=== PATIENT | male | born 1980 | race Two or more races ===

== ENCOUNTER 2020-10-23 19:37 | Inpatient (IN) | payer OTHER ==
[2020-10-23] MEDS ORDERED: LACTATED RINGERS SOLUTION 1000 ML INFUS.BAG IV STA (20:04)
[2020-10-23] MEDS ORDERED: DEXAMETHASONE SOD PHOSPHATE 4 MG/1 ML VIAL IVPUSH ONE (20:05)
[2020-10-23] MEDS ORDERED: DEXAMETHASONE SOD PHOSPHATE 10 MG/1 ML VIAL ONE (20:19)
[2020-10-23] MEDS ORDERED: ACETAMINOPHEN 1000 MG/100 ML VIAL (NON FORMULARY) IVPB ONE (20:28)
[2020-10-23] MEDS ORDERED: ACETAMINOPHEN INJECTION 100 ML IVPB ONE (20:48)
[2020-10-23 21:13] LABS: VENOUS BASE EXCESS 1.4 mmol/L (-2-2); VENOUS O2 SATURATION 24.3 % (70-80); VENOUS PCO2 51.5 mmHg (38-52); VENOUS PH 7.354 (7.310-7.410)
[2020-10-23 21:17] LABS: BASO % 0.1 % (0-2.0); HEMATOCRIT 47.1 % (35.4-49); HEMOGLOBIN 15.5 GM/dL (11.7-16.9); MCH 26.9 pg (25.7-33.7); MCHC 32.9 g/dl (32.0-35.9); MEAN CELL VOLUME 81.9 fl (80-96); MEAN PLT VOLUME 9.9 fl (7.5-11.1); MONO % 2.5 % (3.8-10.2); NEUT % 84.4 % (42.8-82.8); PLATELET COUNT 170 K/MM3 (134-434); RBC 5.75 M/mm3 (4.00-5.60); WHITE BLOOD COUNT 6.3 K/mm3 (4.0-10.0)
[2020-10-23 21:35] LABS: CHLORIDE 100 mmol/L (98-107); SODIUM 133 mmol/L (136-145)
[2020-10-23 21:38] LABS: CALCIUM 8.4 mg/dL (8.5-10.1)
[2020-10-23 21:40] LABS: ALBUMIN 3.3 g/dl (3.4-5.0); ANION GAP 5 MMOL/L (8-16); BLOOD UREA NITROGEN 9.4 mg/dL (7-18); CO2 28 mmol/L (21-32); GLUCOSE,RANDOM 104 mg/dL (74-106)
[2020-10-23 21:41] LABS: BILIRUBIN,DIRECT 0.1 mg/dL (0.0-0.2)
[2020-10-23 21:43] LABS: BILIRUBIN,TOTAL 0.2 mg/dL (0.2-1); SGOT/AST 39 U/L (15-37); SGPT/ALT 28 U/L (13-61); TOT PROT 7.1 g/dl (6.4-8.2)
[2020-10-23 21:44] LABS: ALK PHOS 53 U/L (45-117)
[2020-10-23 21:52] LABS: LDH 402 U/L (87-246)
[2020-10-23 22:05] LABS: INR 1.3 (0.83-1.09); PROTHROMBIN TIME (PATIENT) 15.9 SEC (9.7-13.0)
[2020-10-23 22:08] LABS: ACTIVATED PTT 31.7 SECONDS (25.2-36.5)
[2020-10-23 23:17] LABS: PH,URINE 6.5 (5.0-8.0); URINE APPEARANCE CLEAR; URINE BILIRUBIN NEGATIVE (NEGATIVE); URINE COLOR YELLOW; URINE GLUCOSE (UA) NEGATIVE (NEGATIVE); URINE KETONE NEGATIVE (NEGATIVE); URINE LEUK ESTERASE NEGATIVE (NEGATIVE); URINE NITRITE NEGATIVE (NEGATIVE); URINE PROTEIN TRACE (NEGATIVE); URINE UROBILINOGEN 0.2 mg/dL (0.2-1.0)
[2020-10-24 03:35] VITALS: BMI 26.9
[2020-10-24] MEDS: SODIUM CHLORIDE 1,000 ML IV SCH ×3 (04:00→23:45)
[2020-10-24 07:27] LABS: HEMATOCRIT 44.7 % (35.4-49); HEMOGLOBIN 14.9 GM/dL (11.7-16.9); MCH 27.3 pg (25.7-33.7); MCHC 33.3 g/dl (32.0-35.9); MEAN CELL VOLUME 82.1 fl (80-96); MEAN PLT VOLUME 9.7 fl (7.5-11.1); PLATELET COUNT 154 K/MM3 (134-434); RBC 5.44 M/mm3 (4.00-5.60); RDW 14.3 % (11.9-15.9); WHITE BLOOD COUNT 3.8 K/mm3 (4.0-10.0)
[2020-10-24 07:49] LABS: BLOOD UREA NITROGEN 10.4 mg/dL (7-18)
[2020-10-24 07:50] LABS: CALCIUM 8.2 mg/dL (8.5-10.1)
[2020-10-24 07:51] LABS: CREATININE 0.8 mg/dL (0.55-1.3)
[2020-10-24] MEDS: ZINC SULFATE 220 MG CAPSULE (FP) PO SCH ×2 (11:17→21:00)
[2020-10-24] MEDS: ASCORBIC ACID 500 MG TABLET (FP) PO SCH (11:18)
[2020-10-24] MEDS: amLODIPine BESYLATE 5 MG TABLET (FP) PO SCH (11:18)
[2020-10-24] MEDS: DEXAMETHASONE SOD PHOSPHATE 4 MG/1 ML VIAL IVPUSH SCH (11:18)
[2020-10-24] MEDS: ENOXAPARIN NA (PORCINE) 40 MG/0.4 ML DISP.SYRIN SQ SCH (11:19)
[2020-10-24] MEDS: ACETAMINOPHEN 1000 MG/100 ML VIAL (NON FORMULARY) IVPB PRN (12:06)
[2020-10-24] MEDS: FAMOTIDINE 20 MG TABLET PO SCH (17:36)
[2020-10-24] MEDS ORDERED: REMDESIVIR 200 MG in SODIUM CHLORIDE 250 ML IVPB ONE (21:00)
[2020-10-25] MEDS: ACETAMINOPHEN 1000 MG/100 ML VIAL (NON FORMULARY) IVPB PRN (05:38)
[2020-10-25] MEDS: ZINC SULFATE 220 MG CAPSULE (FP) PO SCH ×2 (11:18→20:59)
[2020-10-25] MEDS: ASCORBIC ACID 500 MG TABLET (FP) PO SCH (11:18)
[2020-10-25] MEDS: FAMOTIDINE 20 MG TABLET PO SCH (11:18)
[2020-10-25] MEDS: ENOXAPARIN NA (PORCINE) 40 MG/0.4 ML DISP.SYRIN SQ SCH (11:18)
[2020-10-25] MEDS: amLODIPine BESYLATE 5 MG TABLET (FP) PO SCH (11:19)
[2020-10-25] MEDS: DEXAMETHASONE SOD PHOSPHATE 4 MG/1 ML VIAL IVPUSH SCH (11:19)
[2020-10-25] MEDS: REMDESIVIR 100 MG in SODIUM CHLORIDE 250 ML IVPB SCH (20:46)
[2020-10-25] MEDS: SODIUM CHLORIDE 1,000 ML IV SCH ×2 (20:50→23:50)
[2020-10-26] MEDS: DEXAMETHASONE SOD PHOSPHATE 4 MG/1 ML VIAL IVPUSH SCH (09:29)
[2020-10-26] MEDS: FAMOTIDINE 20 MG TABLET PO SCH (09:30)
[2020-10-26] MEDS: amLODIPine BESYLATE 5 MG TABLET (FP) PO SCH (09:30)
[2020-10-26] MEDS: ZINC SULFATE 220 MG CAPSULE (FP) PO SCH ×2 (09:30→21:41)
[2020-10-26] MEDS: ASCORBIC ACID 500 MG TABLET (FP) PO SCH (09:30)
[2020-10-26] MEDS: ENOXAPARIN NA (PORCINE) 40 MG/0.4 ML DISP.SYRIN SQ SCH (09:30)
[2020-10-26] MEDS: ALBUTEROL SO4 HFA INHALER IH SCH ×3 (11:51→20:34)
[2020-10-26] MEDS: BUDESONIDE/FORMETEROL FUMARATE 160/4.5 mcg INHALER IH SCH ×2 (11:59→21:41)
[2020-10-26] MEDS: REMDESIVIR 100 MG in SODIUM CHLORIDE 250 ML IVPB SCH (20:34)
[2020-10-27 08:05] LABS: BASO % 0.1 % (0-2.0); HEMATOCRIT 47.5 % (35.4-49); HEMOGLOBIN 16.1 GM/dL (11.7-16.9); LYMPH % 11.2 % (8-40); MCH 27.3 pg (25.7-33.7); MCHC 33.9 g/dl (32.0-35.9); MEAN CELL VOLUME 80.7 fl (80-96); MONO % 9.4 % (3.8-10.2); NEUT % 79.3 % (42.8-82.8); PLATELET COUNT 243 K/MM3 (134-434); RBC 5.89 M/mm3 (4.00-5.60); WHITE BLOOD COUNT 9.9 K/mm3 (4.0-10.0)
[2020-10-27 08:29] LABS: CALCIUM 8.2 mg/dL (8.5-10.1)
[2020-10-27 08:30] LABS: ALBUMIN 2.9 g/dl (3.4-5.0); BLOOD UREA NITROGEN 14.9 mg/dL (7-18); MAGNESIUM 2.3 mg/dL (1.8-2.4)
[2020-10-27 08:33] LABS: CREATININE 0.7 mg/dL (0.55-1.3)
[2020-10-27 08:34] LABS: BILIRUBIN,TOTAL 0.4 mg/dL (0.2-1); PHOSPHOROUS 3.5 mg/dL (2.5-4.9)
[2020-10-27 08:35] LABS: TOT PROT 6.8 g/dl (6.4-8.2)
[2020-10-27] MEDS: ZINC SULFATE 220 MG CAPSULE (FP) PO SCH ×2 (09:40→21:10)
[2020-10-27] MEDS: ASCORBIC ACID 500 MG TABLET (FP) PO SCH (09:41)
[2020-10-27] MEDS: ENOXAPARIN NA (PORCINE) 40 MG/0.4 ML DISP.SYRIN SQ SCH (09:41)
[2020-10-27] MEDS: DEXAMETHASONE SOD PHOSPHATE 4 MG/1 ML VIAL IVPUSH SCH (09:41)
[2020-10-27] MEDS: FAMOTIDINE 20 MG TABLET PO SCH (09:41)
[2020-10-27] MEDS: amLODIPine BESYLATE 5 MG TABLET (FP) PO SCH (09:41)
[2020-10-27] MEDS: ALBUTEROL SO4 HFA INHALER IH SCH ×4 (09:42→20:20)
[2020-10-27] MEDS: BUDESONIDE/FORMETEROL FUMARATE 160/4.5 mcg INHALER IH SCH ×2 (09:42→21:10)
[2020-10-27] MEDS ORDERED: ACETAMINOPHEN 500 MG TABLET (FP) PO PRN (19:52)
[2020-10-27] MEDS: REMDESIVIR 100 MG in SODIUM CHLORIDE 250 ML IVPB SCH (20:19)
[2020-10-28] MEDS: ALBUTEROL SO4 HFA INHALER IH SCH ×4 (07:31→20:56)
[2020-10-28] MEDS: ENOXAPARIN NA (PORCINE) 40 MG/0.4 ML DISP.SYRIN SQ SCH (09:20)
[2020-10-28] MEDS: amLODIPine BESYLATE 5 MG TABLET (FP) PO SCH (09:20)
[2020-10-28] MEDS: DEXAMETHASONE SOD PHOSPHATE 4 MG/1 ML VIAL IVPUSH SCH (09:20)
[2020-10-28] MEDS: ZINC SULFATE 220 MG CAPSULE (FP) PO SCH ×2 (09:20→21:00)
[2020-10-28] MEDS: ASCORBIC ACID 500 MG TABLET (FP) PO SCH (09:20)
[2020-10-28] MEDS: FAMOTIDINE 20 MG TABLET PO SCH (09:20)
[2020-10-28] MEDS: BUDESONIDE/FORMETEROL FUMARATE 160/4.5 mcg INHALER IH SCH ×2 (09:22→21:00)
[2020-10-28] MEDS ORDERED: PT OWN MED DRAWER 7, Y5N ONE (20:45)
[2020-10-28] MEDS: REMDESIVIR 100 MG in SODIUM CHLORIDE 250 ML IVPB SCH (20:56)
[2020-10-29 07:29] LABS: HEMOGLOBIN 15.9 GM/dL (11.7-16.9); MCH 27.4 pg (25.7-33.7); MCHC 33.9 g/dl (32.0-35.9); MEAN PLT VOLUME 9.3 fl (7.5-11.1); PLATELET COUNT 387 K/MM3 (134-434); RBC 5.81 M/mm3 (4.00-5.60); RDW 13.9 % (11.9-15.9); WHITE BLOOD COUNT 14.4 K/mm3 (4.0-10.0)
[2020-10-29 07:53] LABS: CALCIUM 8.5 mg/dL (8.5-10.1)
[2020-10-29 07:54] LABS: ALBUMIN 3.2 g/dl (3.4-5.0); BLOOD UREA NITROGEN 15.5 mg/dL (7-18)
[2020-10-29 07:57] LABS: BILIRUBIN,TOTAL 0.7 mg/dL (0.2-1); CREATININE 0.7 mg/dL (0.55-1.3)
[2020-10-29] MEDS: ZINC SULFATE 220 MG CAPSULE (FP) PO SCH ×2 (11:19→21:21)
[2020-10-29] MEDS: ALBUTEROL SO4 HFA INHALER IH SCH ×4 (11:20→21:21)
[2020-10-29] MEDS: FAMOTIDINE 20 MG TABLET PO SCH (11:20)
[2020-10-29] MEDS: ENOXAPARIN NA (PORCINE) 40 MG/0.4 ML DISP.SYRIN SQ SCH (11:20)
[2020-10-29] MEDS: BUDESONIDE/FORMETEROL FUMARATE 160/4.5 mcg INHALER IH SCH ×2 (11:20→21:21)
[2020-10-29] MEDS: DEXAMETHASONE SOD PHOSPHATE 4 MG/1 ML VIAL IVPUSH SCH (11:20)
[2020-10-29] MEDS: amLODIPine BESYLATE 5 MG TABLET (FP) PO SCH ×2 (11:20→13:17)
[2020-10-29] MEDS: ASCORBIC ACID 500 MG TABLET (FP) PO SCH (11:20)
[2020-10-29] MEDS: clonazePAM 0.5 MG TABLET PO PRN (15:10)
[2020-10-30] MEDS ORDERED: TOCILIZUMAB (ACTEMRA) 200 MG/10 ML VIAL IVPB ONE (10:15)
[2020-10-30] MEDS: FAMOTIDINE 20 MG TABLET PO SCH (10:20)
[2020-10-30] MEDS: amLODIPine BESYLATE 5 MG TABLET (FP) PO SCH (10:20)
[2020-10-30] MEDS: DEXAMETHASONE SOD PHOSPHATE 4 MG/1 ML VIAL IVPUSH SCH (10:20)
[2020-10-30] MEDS: ENOXAPARIN NA (PORCINE) 40 MG/0.4 ML DISP.SYRIN SQ SCH (10:20)
[2020-10-30] MEDS: ZINC SULFATE 220 MG CAPSULE (FP) PO SCH ×2 (10:20→21:17)
[2020-10-30] MEDS: ASCORBIC ACID 500 MG TABLET (FP) PO SCH (10:21)
[2020-10-30] MEDS: BUDESONIDE/FORMETEROL FUMARATE 160/4.5 mcg INHALER IH SCH ×2 (10:30→21:17)
[2020-10-30] MEDS: ALBUTEROL SO4 HFA INHALER IH SCH ×5 (10:30→20:37)
[2020-10-30] MEDS ORDERED: TOCILIZUMAB 400 MG, TOCILIZUMAB 100 MG in SODIUM CHLORIDE 75 ML IVPB ONE (11:30)
[2020-10-30] MEDS: CHLORHEXIDINE GLUCONATE 4% CLEANSER FOR DECOLONIZATION TP SCH (21:17)
[2020-10-30] MEDS: MUPIROCIN 2% TOPICAL OINTMENT FOR DECOLONIZATION NS SCH (21:17)
[2020-10-30] MEDS ORDERED: ACETAMINOPHEN 500 MG TABLET (FP) PO PRN (23:41)
[2020-10-30] MEDS: clonazePAM 0.5 MG TABLET PO PRN (23:58)
[2020-10-31 06:11] LABS: ARTERIAL BLD GAS O2 SATURATION 92.9 mmHg (95-98); ARTERIAL BLOOD GAS BASE EXCESS -0.1 mmol/L (-2-2); ARTERIAL BLOOD GAS PO2 61.9 mmHg (80-100); ARTERIAL BLOOD GAS pH 7.448 (7.350-7.450)
[2020-10-31 06:16] LABS: ALLENS TEST POSITIVE
[2020-10-31 07:05] LABS: BASO % 0.1 % (0-2.0); EOS % 0.4 % (0-4.5); HEMOGLOBIN 16.4 GM/dL (11.7-16.9); LYMPH % 5.5 % (8-40); MCH 27.2 pg (25.7-33.7); MCHC 33.5 g/dl (32.0-35.9); MEAN CELL VOLUME 81.3 fl (80-96); MONO % 4.4 % (3.8-10.2); NEUT % 89.6 % (42.8-82.8); PLATELET COUNT 505 K/MM3 (134-434); RBC 6.03 M/mm3 (4.00-5.60); RDW 14.7 % (11.9-15.9); WHITE BLOOD COUNT 20.2 K/mm3 (4.0-10.0)
[2020-10-31 07:17] LABS: MAGNESIUM 2.3 mg/dL (1.8-2.4)
[2020-10-31 07:21] LABS: PHOSPHOROUS 3.8 mg/dL (2.5-4.9)
[2020-10-31] MEDS: ALBUTEROL SO4 HFA INHALER IH SCH ×3 (08:30→16:47)
[2020-10-31 08:44] LABS: ANISOCYTOSIS 2+; MACROCYTOSIS 0; PLATELET ESTIMATE INCREASED
[2020-10-31] MEDS ORDERED: PT OWN MED DRAWER 7, Y5N ONE ×2 (09:50→10:37)
[2020-10-31] MEDS: MUPIROCIN 2% TOPICAL OINTMENT FOR DECOLONIZATION NS SCH ×3 (09:51→22:52)
[2020-10-31] MEDS: ENOXAPARIN NA (PORCINE) 40 MG/0.4 ML DISP.SYRIN SQ SCH (09:52)
[2020-10-31] MEDS: BUDESONIDE/FORMETEROL FUMARATE 160/4.5 mcg INHALER IH SCH ×3 (09:52→22:53)
[2020-10-31] MEDS: DEXAMETHASONE SOD PHOSPHATE 4 MG/1 ML VIAL IVPUSH SCH (09:52)
[2020-10-31] MEDS: ASCORBIC ACID 500 MG TABLET (FP) PO SCH (09:52)
[2020-10-31] MEDS: ZINC SULFATE 220 MG CAPSULE (FP) PO SCH ×2 (09:52→22:52)
[2020-10-31] MEDS: FAMOTIDINE 20 MG TABLET PO SCH (09:52)
[2020-10-31] MEDS: amLODIPine BESYLATE 5 MG TABLET (FP) PO SCH (09:52)
[2020-10-31] MEDS ORDERED: TOCILIZUMAB IVPB ONE (11:30)
[2020-10-31] MEDS ORDERED: SODIUM CHLORIDE IVPB ONE (11:30)
[2020-10-31] MEDS: CHLORHEXIDINE GLUCONATE 4% CLEANSER FOR DECOLONIZATION TP SCH (22:52)
[2020-11-01 07:04] LABS: BASO % 0.2 % (0-2.0); EOS % 1.7 % (0-4.5); HEMATOCRIT 49.6 % (35.4-49); HEMOGLOBIN 16.9 GM/dL (11.7-16.9); LYMPH % 4.7 % (8-40); MCH 27.6 pg (25.7-33.7); MCHC 34.2 g/dl (32.0-35.9); MEAN CELL VOLUME 80.8 fl (80-96); MEAN PLT VOLUME 8.7 fl (7.5-11.1); NEUT % 89.4 % (42.8-82.8); PLATELET COUNT 524 K/MM3 (134-434); RBC 6.14 M/mm3 (4.00-5.60); RDW 14.6 % (11.9-15.9); WHITE BLOOD COUNT 20.3 K/mm3 (4.0-10.0)
[2020-11-01 07:17] LABS: ALBUMIN 3.3 g/dl (3.4-5.0); CALCIUM 8.8 mg/dL (8.5-10.1)
[2020-11-01 07:18] LABS: BLOOD UREA NITROGEN 16.8 mg/dL (7-18); MAGNESIUM 2.2 mg/dL (1.8-2.4)
[2020-11-01 07:20] LABS: CREATININE 0.7 mg/dL (0.55-1.3)
[2020-11-01 07:21] LABS: PHOSPHOROUS 3.5 mg/dL (2.5-4.9)
[2020-11-01 07:22] LABS: BILIRUBIN,TOTAL 0.7 mg/dL (0.2-1); TOT PROT 7.2 g/dl (6.4-8.2)
[2020-11-01] MEDS ORDERED: PT OWN MED DRAWER 7, Y5N ONE ×2 (07:47→09:34)
[2020-11-01] MEDS: ALBUTEROL SO4 HFA INHALER IH SCH ×4 (08:03→21:29)
[2020-11-01] MEDS: ENOXAPARIN NA (PORCINE) 40 MG/0.4 ML DISP.SYRIN SQ SCH (09:39)
[2020-11-01] MEDS: amLODIPine BESYLATE 5 MG TABLET (FP) PO SCH (09:39)
[2020-11-01] MEDS: FAMOTIDINE 20 MG TABLET PO SCH (09:39)
[2020-11-01] MEDS: ASCORBIC ACID 500 MG TABLET (FP) PO SCH (09:39)
[2020-11-01] MEDS: ZINC SULFATE 220 MG CAPSULE (FP) PO SCH ×2 (09:39→21:20)
[2020-11-01] MEDS: DEXAMETHASONE SOD PHOSPHATE 4 MG/1 ML VIAL IVPUSH SCH (09:39)
[2020-11-01] MEDS: BUDESONIDE/FORMETEROL FUMARATE 160/4.5 mcg INHALER IH SCH ×2 (09:40→21:28)
[2020-11-01] MEDS: MUPIROCIN 2% TOPICAL OINTMENT FOR DECOLONIZATION NS SCH ×2 (10:36→21:10)
[2020-11-01 11:16] LABS: PLATELET ESTIMATE NORMAL
[2020-11-01] MEDS ORDERED: MIDAZOLAM HCL 5 MG/1 ML Single Dose Vial IVPUSH ONE (12:32)
[2020-11-01] MEDS ORDERED: MORPHINE SULFATE 2 MG/ML VIAL IVPUSH ONE (13:51)
[2020-11-01] MEDS: LIDOCAINE 5% TOPICAL PATCH TP SCH (14:01)
[2020-11-01] MEDS ORDERED: PIPERACILLIN/TAZOBACTAM 3.375 GM VIAL IVPB ONE (18:16)
[2020-11-01] MEDS ORDERED: DEXTROSE 5%-WATER - 50 ML IVPB ONE (18:16)
[2020-11-01] MEDS: PIPERACILLIN/TAZOB 3.375 GM 3.375 GM in DEXTROSE 5%-WATER - 50 ML IVPB SCH (18:38)
[2020-11-01] MEDS ORDERED: morphine SULFATE 4 MG/ML VIAL IVPUSH ONE (20:02)
[2020-11-01] MEDS: CHLORHEXIDINE GLUCONATE 4% CLEANSER FOR DECOLONIZATION TP SCH (21:09)
[2020-11-01] MEDS: LIDOCAINE PATCH REMOVAL MC SCH (21:28)
[2020-11-01] MEDS: DEXMEDETOMIDINE IN 0.9 % NACL 400 MCG/100 ML VIAL IVPB SCH (22:24)
[2020-11-01 22:48] LABS: ARTERIAL BLOOD GAS BASE EXCESS 0.3 mmol/L (-2-2); ARTERIAL BLOOD GAS PO2 48.6 mmHg (80-100); ARTERIAL BLOOD GAS pH 7.441 (7.350-7.450)
[2020-11-01 22:49] LABS: ALLENS TEST POSITIVE
[2020-11-02] MEDS: PIPERACILLIN/TAZOB 3.375 GM 3.375 GM in DEXTROSE 5%-WATER - 50 ML IVPB SCH ×3 (03:15→18:19)
[2020-11-02] MEDS ORDERED: PIPERACILLIN/TAZOBACTAM 3.375 GM VIAL IVPB ONE ×3 (03:24→18:01)
[2020-11-02] MEDS ORDERED: DEXTROSE 5%-WATER - 50 ML IVPB ONE ×3 (03:25→18:02)
[2020-11-02 06:02] LABS: ALLENS TEST POSITIVE; ARTERIAL BLD GAS O2 SATURATION 74.4 mmHg (95-98); ARTERIAL BLOOD GAS BASE EXCESS 0.8 mmol/L (-2-2); ARTERIAL BLOOD GAS pH 7.454 (7.350-7.450)
[2020-11-02 06:07] LABS: ARTERIAL BLOOD GAS PO2 37.3 mmHg (80-100)
[2020-11-02] MEDS ORDERED: RAPID SEQUENCE INTUBATION KIT NR ONE (06:11)
[2020-11-02] MEDS ORDERED: PROPOFOL 1,000,000 MCG/100 ML VIAL ONE (06:45)
[2020-11-02] MEDS: PROPOFOL 1,000,000 MCG/100 ML VIAL IVPB SCH ×2 (07:00→10:46)
[2020-11-02] MEDS: FENTANYL NS IVPB 500 MCG/100 ML BAG IVPB SCH ×2 (07:00→09:34)
[2020-11-02] MEDS ORDERED: MIDAZOLAM IN 0.9 % SOD.CHLORID 1 MG/1 ML PLAST..BAG ONE ×3 (07:04→20:03)
[2020-11-02] MEDS: MIDAZOLAM 100 MG in SODIUM CHLORIDE 100 ML IVPB SCH (07:20)
[2020-11-02] MEDS: VECURONIUM BROMIDE 100 MG/100 ML BAG IVPB SCH (07:45)
[2020-11-02] MEDS: ALBUTEROL SO4 HFA INHALER IH SCH ×4 (08:19→21:07)
[2020-11-02] MEDS: DEXAMETHASONE SOD PHOSPHATE 4 MG/1 ML VIAL IVPUSH SCH (09:32)
[2020-11-02] MEDS: MUPIROCIN 2% TOPICAL OINTMENT FOR DECOLONIZATION NS SCH ×2 (09:32→21:08)
[2020-11-02] MEDS: ENOXAPARIN NA (PORCINE) 40 MG/0.4 ML DISP.SYRIN SQ SCH (09:32)
[2020-11-02] MEDS: ZINC SULFATE 220 MG CAPSULE (FP) PO SCH ×2 (09:33→21:08)
[2020-11-02] MEDS: amLODIPine BESYLATE 5 MG TABLET (FP) PO SCH (09:33)
[2020-11-02] MEDS: FAMOTIDINE 20 MG TABLET PO SCH (09:33)
[2020-11-02] MEDS: LIDOCAINE 5% TOPICAL PATCH TP SCH (09:33)
[2020-11-02] MEDS: BUDESONIDE/FORMETEROL FUMARATE 160/4.5 mcg INHALER IH SCH ×2 (09:33→21:08)
[2020-11-02] MEDS: ASCORBIC ACID 500 MG TABLET (FP) PO SCH (09:33)
[2020-11-02 10:42] LABS: ARTERIAL BLD GAS O2 SATURATION 77.6 mmHg (95-98); ARTERIAL BLOOD GAS BASE EXCESS -6.8 mmol/L (-2-2); ARTERIAL BLOOD GAS PO2 60.5 mmHg (80-100)
[2020-11-02 10:44] LABS: HEMATOCRIT 53.6 % (35.4-49); HEMOGLOBIN 17.4 GM/dL (11.7-16.9); MCH 27.2 pg (25.7-33.7); MCHC 32.4 g/dl (32.0-35.9); MEAN PLT VOLUME 8.5 fl (7.5-11.1); PLATELET COUNT 535 K/MM3 (134-434); RBC 6.38 M/mm3 (4.00-5.60); RDW 14.7 % (11.9-15.9); WHITE BLOOD COUNT 29.3 K/mm3 (4.0-10.0)
[2020-11-02 10:49] LABS: ALLENS TEST POSITIVE
[2020-11-02 10:50] LABS: VENT MODE AC; VENT RATE 16
[2020-11-02 10:54] LABS: ARTERIAL BLOOD GAS pH 7.051 (7.350-7.450)
[2020-11-02 11:12] LABS: ALBUMIN 3.5 g/dl (3.4-5.0); BLOOD UREA NITROGEN 23.9 mg/dL (7-18); CALCIUM 8.6 mg/dL (8.5-10.1); MAGNESIUM 2.5 mg/dL (1.8-2.4)
[2020-11-02 11:16] LABS: CREATININE 0.8 mg/dL (0.55-1.3); PHOSPHOROUS 6.5 mg/dL (2.5-4.9); TOT PROT 7.4 g/dl (6.4-8.2)
[2020-11-02 11:22] LABS: BILIRUBIN,TOTAL 0.5 mg/dL (0.2-1)
[2020-11-02 12:34] LABS: ARTERIAL BLD GAS O2 SATURATION 82.1 mmHg (95-98); ARTERIAL BLOOD GAS BASE EXCESS -4.1 mmol/L (-2-2); ARTERIAL BLOOD GAS PO2 60.7 mmHg (80-100)
[2020-11-02 12:35] LABS: ALLENS TEST POSITIVE
[2020-11-02 12:39] LABS: VENT MODE V
[2020-11-02 12:40] LABS: VENT RATE 30
[2020-11-02] MEDS: PANTOPRAZOLE SODIUM 40 MG VIAL IVPUSH SCH (13:19)
[2020-11-02] MEDS ORDERED: FENTANYL IVPB 500 MCG/100 ML BAG IVPB ONE ×2 (14:35→20:03)
[2020-11-02 17:11] LABS: HEP B CORE AB, TOT Negative (Negative)
[2020-11-02] MEDS ORDERED: ACETAMINOPHEN 1000 MG/100 ML VIAL (NON FORMULARY) IVPB ONE (19:15)
[2020-11-02] MEDS: LIDOCAINE PATCH REMOVAL MC SCH (21:08)
[2020-11-02] MEDS: CHLORHEXIDINE GLUCONATE 4% CLEANSER FOR DECOLONIZATION TP SCH (21:08)
[2020-11-02] MEDS: DEXMEDETOMIDINE IN 0.9 % NACL 400 MCG/100 ML VIAL IVPB SCH (21:30)
[2020-11-03] MEDS ORDERED: MIDAZOLAM IN 0.9 % SOD.CHLORID 1 MG/1 ML PLAST..BAG ONE ×3 (00:45→19:39)
[2020-11-03] MEDS ORDERED: PIPERACILLIN/TAZOBACTAM 3.375 GM VIAL IVPB ONE ×3 (01:24→18:04)
[2020-11-03] MEDS ORDERED: DEXTROSE 5%-WATER - 50 ML IVPB ONE ×3 (01:24→18:04)
[2020-11-03] MEDS: PIPERACILLIN/TAZOB 3.375 GM 3.375 GM in DEXTROSE 5%-WATER - 50 ML IVPB SCH ×4 (01:27→18:34)
[2020-11-03] MEDS: PROPOFOL 1,000,000 MCG/100 ML VIAL IVPB SCH ×3 (01:29→19:30)
[2020-11-03] MEDS: FENTANYL NS IVPB 500 MCG/100 ML BAG IVPB SCH ×4 (06:14→22:00)
[2020-11-03] MEDS: MIDAZOLAM 100 MG in SODIUM CHLORIDE 100 ML IVPB SCH ×2 (06:14→17:56)
[2020-11-03] MEDS ORDERED: FENTANYL IVPB 500 MCG/100 ML BAG IVPB ONE (06:16)
[2020-11-03 06:46] LABS: ARTERIAL BLD GAS O2 SATURATION 94.5 mmHg (95-98); ARTERIAL BLOOD GAS BASE EXCESS 2.1 mmol/L (-2-2); ARTERIAL BLOOD GAS PO2 80.4 mmHg (80-100); ARTERIAL BLOOD GAS pH 7.303 (7.350-7.450)
[2020-11-03 06:55] LABS: ALLENS TEST POSITIVE; VENT MODE V-A/C; VENT RATE 30
[2020-11-03] MEDS: ALBUTEROL SO4 HFA INHALER IH SCH ×4 (08:55→18:34)
[2020-11-03] MEDS: VECURONIUM BROMIDE 100 MG/100 ML BAG IVPB SCH ×2 (08:56→17:00)
[2020-11-03] MEDS: BUDESONIDE/FORMETEROL FUMARATE 160/4.5 mcg INHALER IH SCH ×2 (09:50→21:20)
[2020-11-03] MEDS: LIDOCAINE 5% TOPICAL PATCH TP SCH (09:50)
[2020-11-03] MEDS: DEXAMETHASONE SOD PHOSPHATE 4 MG/1 ML VIAL IVPUSH SCH (09:53)
[2020-11-03] MEDS: ASCORBIC ACID 500 MG TABLET (FP) PO SCH (09:53)
[2020-11-03] MEDS: ENOXAPARIN NA (PORCINE) 40 MG/0.4 ML DISP.SYRIN SQ SCH (09:53)
[2020-11-03] MEDS: MUPIROCIN 2% TOPICAL OINTMENT FOR DECOLONIZATION NS SCH ×2 (09:53→21:19)
[2020-11-03] MEDS: PANTOPRAZOLE SODIUM 40 MG VIAL IVPUSH SCH (09:53)
[2020-11-03] MEDS: ZINC SULFATE 220 MG CAPSULE (FP) PO SCH ×2 (09:54→21:19)
[2020-11-03 09:58] LABS: BASO % 0.2 % (0-2.0); HEMATOCRIT 51.4 % (35.4-49); HEMOGLOBIN 16.1 GM/dL (11.7-16.9); LYMPH % 4.4 % (8-40); MCHC 31.4 g/dl (32.0-35.9); MEAN CELL VOLUME 82.7 fl (80-96); NEUT % 88.4 % (42.8-82.8); PLATELET COUNT 292 K/MM3 (134-434); RBC 6.21 M/mm3 (4.00-5.60); RDW 14.4 % (11.9-15.9)
[2020-11-03 10:24] LABS: ALBUMIN 2.8 g/dl (3.4-5.0); CALCIUM 8.1 mg/dL (8.5-10.1)
[2020-11-03 10:25] LABS: BLOOD UREA NITROGEN 17.7 mg/dL (7-18); MAGNESIUM 2.3 mg/dL (1.8-2.4)
[2020-11-03 10:27] LABS: CREATININE 0.9 mg/dL (0.55-1.3)
[2020-11-03 10:28] LABS: PHOSPHOROUS 4.1 mg/dL (2.5-4.9)
[2020-11-03 10:29] LABS: BILIRUBIN,TOTAL 0.4 mg/dL (0.2-1); TOT PROT 6.2 g/dl (6.4-8.2)
[2020-11-03] MEDS: amLODIPine BESYLATE 5 MG TABLET (FP) PO SCH (11:37)
[2020-11-03 18:17] LABS: ARTERIAL BLD GAS O2 SATURATION 89.4 mmHg (95-98); ARTERIAL BLOOD GAS BASE EXCESS 2.7 mmol/L (-2-2); ARTERIAL BLOOD GAS pH 7.307 (7.350-7.450)
[2020-11-03 18:19] LABS: ALLENS TEST POSITIVE
[2020-11-03 18:20] LABS: VENT MODE A/C; VENT RATE 30
[2020-11-03] MEDS: LIDOCAINE PATCH REMOVAL MC SCH (21:19)
[2020-11-03] MEDS: CHLORHEXIDINE GLUCONATE 4% CLEANSER FOR DECOLONIZATION TP SCH (21:19)
[2020-11-03] MEDS: DEXMEDETOMIDINE IN 0.9 % NACL 400 MCG/100 ML VIAL IVPB SCH (21:20)
[2020-11-04] MEDS ORDERED: PIPERACILLIN/TAZOBACTAM 3.375 GM VIAL IVPB ONE ×2 (01:36→08:58)
[2020-11-04] MEDS ORDERED: DEXTROSE 5%-WATER - 50 ML IVPB ONE ×2 (01:37→08:58)
[2020-11-04] MEDS: PIPERACILLIN/TAZOB 3.375 GM 3.375 GM in DEXTROSE 5%-WATER - 50 ML IVPB SCH ×2 (01:40→09:05)
[2020-11-04 02:28] LABS: ALLENS TEST POSITIVE; ARTERIAL BLD GAS O2 SATURATION 89.1 mmHg (95-98); ARTERIAL BLOOD GAS BASE EXCESS 7.4 mmol/L (-2-2); ARTERIAL BLOOD GAS PO2 60.7 mmHg (80-100); ARTERIAL BLOOD GAS pH 7.343 (7.350-7.450); VENT MODE A/C; VENT RATE 30
[2020-11-04 06:28] LABS: BASO % 0.1 % (0-2.0); HEMATOCRIT 44.1 % (35.4-49); HEMOGLOBIN 14.6 GM/dL (11.7-16.9); LYMPH % 4.7 % (8-40); MCH 27.3 pg (25.7-33.7); MCHC 33.1 g/dl (32.0-35.9); MEAN CELL VOLUME 82.7 fl (80-96); MEAN PLT VOLUME 8.4 fl (7.5-11.1); MONO % 5.1 % (3.8-10.2); NEUT % 89.1 % (42.8-82.8); PLATELET COUNT 327 K/MM3 (134-434); RBC 5.33 M/mm3 (4.00-5.60); RDW 14.1 % (11.9-15.9); WHITE BLOOD COUNT 15.8 K/mm3 (4.0-10.0)
[2020-11-04 06:51] LABS: ALBUMIN 2.5 g/dl (3.4-5.0); CALCIUM 7.5 mg/dL (8.5-10.1); MAGNESIUM 2.3 mg/dL (1.8-2.4)
[2020-11-04 06:52] LABS: BLOOD UREA NITROGEN 19.5 mg/dL (7-18)
[2020-11-04 06:54] LABS: CREATININE 0.7 mg/dL (0.55-1.3); PHOSPHOROUS 3.3 mg/dL (2.5-4.9)
[2020-11-04 06:56] LABS: BILIRUBIN,TOTAL 0.4 mg/dL (0.2-1); TOT PROT 5.2 g/dl (6.4-8.2)
[2020-11-04] MEDS: FENTANYL NS IVPB 500 MCG/100 ML BAG IVPB SCH ×2 (09:03→14:00)
[2020-11-04] MEDS: ALBUTEROL SO4 HFA INHALER IH SCH ×3 (09:03→16:06)
[2020-11-04] MEDS: PROPOFOL 1,000,000 MCG/100 ML VIAL IVPB SCH (09:03)
[2020-11-04] MEDS: amLODIPine BESYLATE 5 MG TABLET (FP) PO SCH (09:04)
[2020-11-04] MEDS: DEXAMETHASONE SOD PHOSPHATE 4 MG/1 ML VIAL IVPUSH SCH (09:04)
[2020-11-04] MEDS: ZINC SULFATE 220 MG CAPSULE (FP) PO SCH (09:04)
[2020-11-04] MEDS: MUPIROCIN 2% TOPICAL OINTMENT FOR DECOLONIZATION NS SCH (09:04)
[2020-11-04] MEDS: LIDOCAINE 5% TOPICAL PATCH TP SCH (09:04)
[2020-11-04] MEDS: VECURONIUM BROMIDE 100 MG/100 ML BAG IVPB SCH (09:04)
[2020-11-04] MEDS: ENOXAPARIN NA (PORCINE) 40 MG/0.4 ML DISP.SYRIN SQ SCH (09:04)
[2020-11-04] MEDS: PANTOPRAZOLE SODIUM 40 MG VIAL IVPUSH SCH (09:05)
[2020-11-04] MEDS: ASCORBIC ACID 500 MG TABLET (FP) PO SCH (09:52)
[2020-11-04] MEDS: BUDESONIDE/FORMETEROL FUMARATE 160/4.5 mcg INHALER IH SCH (09:52)
[2020-11-04] MEDS ORDERED: MIDAZOLAM IN 0.9 % SOD.CHLORID 1 MG/1 ML PLAST..BAG ONE (09:54)
[2020-11-04] MEDS: MIDAZOLAM 100 MG in SODIUM CHLORIDE 100 ML IVPB SCH (11:46)
[2020-11-04] MEDS ORDERED: AMINO ACIDS/PROTEIN HYDROLYS 30 ML LIQUID.PKT PO SCH (17:30)
[2020-11-04 18:28] VITALS: BP 119/78; PULSE 101; TEMP 98
== END 2020-11-04 17:30 | disposition short-term general hospital (02) | DRG 951 ==
LOC: JER 19:37 → JERBED 22:46 → J7W 10-24 02:28 → JICU 10-30 17:01
PROVIDERS: ADMIT Hospitalist; ATTEND Internal Medicine Pulmonary Disease
PROC: XW033E5 Introduction of Remdesivir Anti-infective into Peripheral Vein, Percutaneous Approach, New Technology Group 5 (ICD-10-PCS; 2020-10-23)
PROC: XW033H5 Introduction of Tocilizumab into Peripheral Vein, Percutaneous Approach, New Technology Group 5 (ICD-10-PCS; 2020-10-23)
PROC: 0W9B30Z Drainage of Left Pleural Cavity with Drainage Device, Percutaneous Approach (ICD-10-PCS; 2020-10-30)
PROC: 0W9B30Z Drainage of Left Pleural Cavity with Drainage Device, Percutaneous Approach (ICD-10-PCS; 2020-11-01)
PROC: 5A1945Z Respiratory Ventilation, 24-96 Consecutive Hours (ICD-10-PCS; principal; 2020-11-02)
PROC: 0BH17EZ Insertion of Endotracheal Airway into Trachea, Via Natural or Artificial Opening (ICD-10-PCS; 2020-11-02)
PROC: 0DH673Z Insertion of Infusion Device into Stomach, Via Natural or Artificial Opening (ICD-10-PCS; 2020-11-02)
PROC: 05HN33Z Insertion of Infusion Device into Left Internal Jugular Vein, Percutaneous Approach (ICD-10-PCS; 2020-11-03)
PROC: B544ZZA Ultrasonography of Left Jugular Veins, Guidance (ICD-10-PCS; 2020-11-03)
DX: U07.1 COVID-19 (principal); I10 Essential (primary) hypertension; R63.0 Anorexia; E87.1 Hypo-osmolality and hyponatremia; J93.83 Other pneumothorax; J80 Acute respiratory distress syndrome; J12.82 Pneumonia due to coronavirus disease 2019; E66.9 Obesity, unspecified; Z68.26 Body mass index [BMI] 26.0-26.9, adult; R19.7 Diarrhea, unspecified; E86.0 Dehydration
CPT/HCPCS: 32557; 36415; 36600; 70360-TC-FY; 71045-TC-FY; 80048; 80053; 81003; 82248; 82550; 82728; 82803; 82962; 83036; 83605; 83615; 83735; 84100; 84484; 85025; 85027; 85379; 85610; 85730; 86140; 86704; 86706; 86707; 86708; 86709; 86769; 87040; 87086; 87340; 87522; 87804; 93005; 93010; 94002; 94010; 99285-25; C9399; C9803; J0131; J3262; U0003; U0005